=== PATIENT | male | born 2000 | race Two or more races ===

== ENCOUNTER 2021-03-10 01:11 | Emergency (ER) | payer MEDICAID ==
[~2021-03-10] VITALS: Ht 172.7 cm; Wt 82.0 kg
[2021-03-10 01:35] VITALS: BP 158/58
== END 2021-03-10 04:23 | disposition left against medical advice (07) ==
LOC: ER 01:11
DX: Z53.21 Procedure and treatment not carried out due to patient leaving prior to being seen by health care provider (principal)